=== PATIENT | female | born 1975 | race Caucasian/White ===

== ENCOUNTER 2019-09-19 19:45 | Emergency (ER) | payer MEDICARE, BC ==
[~2019-09-19] VITALS: Ht 162.6 cm; Wt 103.2 kg
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
--- OUTSIDE RECORDS SUMMARY | 2019-09-19 19:56 | XMS REPORT | Continuity of Care Document ---
Author Organization Unknown Address Unknown Phone Unavailable Allergies There is no data. Medications There is no data. Problems There is no data. Procedures There is no data. Results There is no data. Encounters ACCT No. Visit Date/Time Discharge Status Pt. Type Provider Facility Loc./Unit Complaint [id number] 08/25/2018 10:40:00 08/25/2018 23:59: 59 CLS Outpatient [facility] [id number] 09/19/2019 19:52:[address] Emergency ROBBI BULLOCK DO [facility] ER FS RIGHT ARM INJURY
[2019-09-19] MEDS ORDERED: diphenhydrAMINE 50 MG/ML INJ (BENADRYL) IM ONE (20:15)
[2019-09-19] MEDS ORDERED: PROCHLORPERAZINE 10 MG/2ML INJ (COMPAZINE) IV ONE (20:15)
[2019-09-19 20:24] LABS: BASOPHILS % (AUTO) 1 % (0-10); EOSINOPHILS % (AUTO) 1 % (0-10); HEMATOCRIT 40 % (35-52); HEMOGLOBIN 13.6 G/DL (11.5-16.0); LYMPHOCYTES % (AUTO) 37 % (12-44); MEAN CORPUSCULAR HEMOGLOBIN 31 PG (25-34); MEAN CORPUSCULAR HGB CONC 34 G/DL (32-36); MEAN CORPUSCULAR VOLUME 93 FL (80-99); MONOCYTES % (AUTO) 6 % (0-12); NEUTROPHILS % (AUTO) 55 % (42-75); PLATELET COUNT 247 10^3/uL (130-400); RED CELL DISTRIBUTION WIDTH 12.3 % (10.0-14.5); WHITE BLOOD COUNT 6.4 10^3/uL (4.3-11.0)
[2019-09-19 20:25] LABS: LYMPHOCYTES # (AUTO) 2.4 X 10^3 (1.0-4.0); MONOCYTES # (AUTO) 0.4 X 10^3 (0.0-1.0); NEUTROPHILS # (AUTO) 3.5 X 10^3 (1.8-7.8)
[2019-09-19] MEDS ORDERED: diphenhydrAMINE 50 MG/ML INJ (BENADRYL) IVP ONE (20:30)
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
[2019-09-19 20:41] LABS: CALCIUM 9.4 MG/DL (8.5-10.1); CARBON DIOXIDE 22 MMOL/L (21-32); CHLORIDE 100 MMOL/L (98-107); GLUCOSE 139 MG/DL (70-105); SODIUM 137 MMOL/L (135-145)
[2019-09-19 20:43] LABS: BUN/CREATININE RATIO 15; CREATININE SERUM 0.73 MG/DL (0.60-1.30); GFR ESTIMATED > 60
[2019-09-19] MEDS ORDERED: LIDOCAINE 1% INJ 20 ML 20 ML VIAL INJ ONE (20:45)
[2019-09-19] MEDS ORDERED: TETANUS,DIPTH,PERTUSS P/F (BOOSTRIX) 0.5 ML VIAL IM ONE (21:00)
[2019-09-19 21:32] VITALS: BP 119/73
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
== END 2019-09-19 21:32 | disposition home or self-care (01) ==
LOC: ER FS 19:52
DX: S61.511A Laceration without foreign body of right wrist, initial encounter (principal); S20.111A Abrasion of breast, right breast, initial encounter; S20.02XA Contusion of left breast, initial encounter; G43.909 Migraine, unspecified, not intractable, without status migrainosus; Z72.89 Other problems related to lifestyle; Y90.6 Blood alcohol level of 120-199 mg/100 ml; V86.95XA Unspecified occupant of 3- or 4- wheeled all-terrain vehicle (ATV) injured in nontraffic accident, initial encounter; Z23 Encounter for immunization
CPT/HCPCS: 12042; 36415; 70450; 71045; 73110; 80048; 85025; 90471; 96374; 96375; 99284; G0480; 80320; 90715

== ENCOUNTER 2020-07-10 05:07 | Emergency (ER) | payer BC, MEDICARE ==
[~2020-07-10] VITALS: Ht 167.7 cm; Wt 89.2 kg
[2020-07-10 05:20] VITALS: BP 132/73
--- NOTE | 2020-07-10 05:41 | ED Lower Extremity ---
General Chief Complaint: Lower Extremity Stated Complaint: RIGHT HIP PAIN Nursing Triage Note: Pt reports right upper thigh/hamstring pain x 2 months, pt states tonight pain was worse, pt has not taken anything for pain Nursing Sepsis Screen: No Definite Risk Source: patient Exam Limitations: no limitations History of Present Illness Date Seen by Provider: Jul 10, 2020 Time Seen by Provider: 05:20 Initial Comments Patient reports intermittent right hip pain for the past 2 years with continuous right thigh pain for the past 2 months. She recently helped her mother move and states that the pain is significantly worse this evening while in bed. The pain is deep and not tender to palpation. It is associated with weakness of hip flexion which has been ongoing for the past several months. Pain is at times burning and dull and this evening was intense. The pain is localized to the anterior hip but on occasion it migrates to the distal thigh or femur region. Patient has not been evaluated for this condition prior to the ED as she does not have health insurance or primary care provider. She has not taken any medications or therapies. She denies injury to this region. No other symptoms or complaints. Onset: other Severity: moderate Pain/Injury Location: right hip, right thigh Method of Injury: unknown Modifying Factors: Improves With Movement, Improves With Other Allergies and Home Medications Allergies Coded Allergies: No Known Drug Allergies (Unverified , 09/19/19) Patient Home Medication List Home Medication List Reviewed: Yes Review of Systems Constitutional: see HPI EENTM: see HPI Respiratory: see HPI Cardiovascular: see HPI Gastrointestinal: see HPI Genitourinary: see HPI Musculoskeletal: joint pain, muscle pain, muscle weakness Skin: no symptoms reported, see HPI Psychiatric/Neurological: See HPI All Other Systems Reviewed Negative Unless Noted: Yes Past Odfscpx-[id number]-[id number] Hx Past Med/Social Hx: Reviewed Nursing Past Med/Soc Hx Patient Social History Alcohol Use: Occasionally Uses Smoking Status: Never a Smoker 2nd Hand Smoke Exposure: No Recent Infectious Disease Expo: No Recent Hopitalizations: No Immunizations Up To Date Tetanus Booster (TDap): Less than 5yrs Seasonal Allergies Seasonal Allergies: No Past Medical History Surgeries: Yes Hysterectomy Respiratory: No Cardiac: No Neurological: Yes Headaches /Migraines Genitourinary: No Gastrointestinal: No Musculoskeletal: No Endocrine: No HEENT: No Cancer: No Psychosocial: Yes Depression Integumentary: No Blood Disorders: No Physical Exam Vital Signs Vital Signs - First Documented 07/10/20 05:20 Temp 36.6 Pulse 95 Resp 18 B/P (MAP) 132/73 (92) Pulse Ox 96 O2 Delivery Room Air Capillary Refill : Less Than 3 Seconds Height, Weight, BMI Height: '" Weight: lbs. oz. kg; 31.00 BMI Method: General Appearance: WD/WN HEENT: PERRL/EOMI Hips: right hip limited range of motion, right hip pain, right hip soft tissue tenderness Legs: right leg non-tender, right leg normal inspection, right leg normal range of motion Knees: right knee non-tender, right knee normal inspection, right knee normal range of motion Neurologic/Tendon: sensory deficit Neurologic/Psychiatric: alert, normal mood/affect, oriented x 3 Procedures/Interventions Suture Size: 4-0 Progress/Results/Core Measures Results/Orders My Orders Orders - RISHABH AVILES DO Hip 2-3 View Right (07/10/20 05:32) Vital Signs/I&O 07/10/20 05:20 Temp 36.6 Pulse 95 Resp 18 B/P (MAP) 132/73 (92) Pulse Ox 96 O2 Delivery Room Air Blood Pressure Mean: 92 Departure Communication (Admissions) Right hip x-ray: No obvious displaced fracture on preliminary ED review. Patient with long-term right pain with significant worsening at night. Suspect hip impingement syndrome versus labrum tear versus avascular necrosis versus arthritis from unknown cause. This will required work-up by a sports medicine physician, PCP or retail specialist. Will defer further evaluation to PCP. Patient instructed to establish with a PCP later today. She declines all medications recommended in the ED. Impression Primary Impression: Chronic right hip pain Disposition: HOME, SELF-CARE Condition: Stable Departure-Patient Inst. Decision time for Depature: 05:56 Referrals: NO,LOCAL PHYSICIAN (PCP/Family) Primary Care Physician Patient Instructions: Hip Pain Add. Discharge Instructions: Please establish with a primary care provider as soon as possible for evaluation of chronic hip pain. In the meantime take 600 mg of ibuprofen 3 times daily. All discharge instructions reviewed with patient and/or family. Voiced understanding. RISHABH AVILES DO Jul 10, 2020 05:41
--- NOTE | 2020-07-10 07:20 | Diagnostic Imaging Report ---
INDICATION: Pain COMPARISON: None available. TECHNIQUE: 2 radiographs of the right hip dated 07/10/2020 FINDINGS: No acute fracture or dislocation. No destructive osseous process. Moderate degenerative changes in the pubic symphysis. The right sacroiliac joint appears intact. IMPRESSION: No acute osseous abnormality with scattered degenerative changes, greatest involving the pubic symphysis. Dictated by: Dictated on workstation # [id number]
== END 2020-07-10 06:00 | disposition home or self-care (01) ==
LOC: EDUNIT# 05:07 → ER FS 05:11
DX: G89.29 Other chronic pain (principal); M25.551 Pain in right hip; M79.651 Pain in right thigh
CPT/HCPCS: 73502

== ENCOUNTER 2021-12-31 22:56 | Emergency (ER) | payer MEDICARE ==
[2021-12-31] MEDS ORDERED: PROMETHAZINE INJ 25 MG/ML (PHENERGAN) AMP IVP STA (23:07)
[2021-12-31] MEDS ORDERED: FAMOTIDINE 20 MG (PEPCID) TABLET PO STA (23:07)
--- NOTE | 2021-12-31 23:11 | ED Abdominal Pain ---
General Stated Complaint: ABD PAIN,VOMITTING Source of Information: Patient Exam Limitations: No Limitations History of Present Illness Date Seen by Provider: Dec 31, 2021 Time Seen by Provider: 23:00 Initial Comments 46yoF with prior gastric sleeve surgery coming in due to right upper quadrant pain. Started 2 and half hours prior to arrival, constant, sharp, nothing really seems to make it better or worse. She was watching a movie at home when it started. Never has really had pain like this before. Has associated nausea and nonbloody nonbilious vomiting. Had a normal bowel movement yesterday but none today. Denies any chest pain, shortness of breath, fever, weakness, numbness, dysuria, vaginal bleeding, vaginal discharge, or any other concerns. Has had a hysterectomy. Allergies and Home Medications Allergies Coded Allergies: No Known Drug Allergies (Unverified , 09/19/19) Patient Home Medication List Home Medication List Reviewed: Yes Hydrocodone Bit/Acetaminophen (HYDROcodone/APAP 5 MG/325 MG TAB) 1 Tab Tab, 1 TAB PO Q6H PRN for PAIN-SEVERE (8-10) Prescribed by: TASHA PEREZ on 01/01/22 0038 Review of Systems Review of Systems Constitutional: No fever EENTM: No Symptoms Reported Respiratory: No Symptoms Reported Cardiovascular: No Symptoms Reported Gastrointestinal: Abdominal Pain, Nausea, Vomiting Genitourinary: No Symptoms Reported Musculoskeletal: no symptoms reported Skin: no symptoms reported Psychiatric/Neurological: No Symptoms Reported Endocrine: No Symptoms Reported Hematologic/Lymphatic: No Symptoms Reported All Other Systems Reviewed Negative Unless Noted: Yes Past Icrrbhc-Wlgajg-Bupnmn Hx Patient Social History Tobacco Use?: No Substance use?: No Alcohol Use?: No Immunizations Up To Date Tetanus Booster (TDap): Less than 5yrs Seasonal Allergies Seasonal Allergies: No Past Medical History Surgery/Hospitalization HX: gastric sleeve, hysterectomy Surgeries: Yes Hysterectomy Respiratory: No Cardiac: No Neurological: Yes Headaches /Migraines Genitourinary: No Gastrointestinal: No Musculoskeletal: No Endocrine: No HEENT: No Cancer: No Psychosocial: Yes Depression Integumentary: No Blood Disorders: No Physical Exam Vital Signs Vital Signs - First Documented 12/31/21 22:59 Pulse 67 Resp 20 B/P (MAP) 164/90 (114) Pulse Ox 99 O2 Delivery Room Air Capillary Refill : Height/Weight/BMI Height: '" Weight: lbs. oz. kg; 31.00 BMI Method: General Appearance: WD/WN, mild distress HEENT: PERRL/EOMI, normal ENT inspection, pharynx normal Neck: non-tender, full range of motion, supple, normal inspection Respiratory: chest non-tender, lungs clear, normal breath sounds, no respiratory distress, no accessory muscle use Cardiovascular: regular rate, rhythm, no edema, no murmur Gastrointestinal: normal bowel sounds, soft; No distended, No guarding, No rebound; tenderness Extremities: normal range of motion, non-tender, normal inspection, no pedal edema, no calf tenderness, normal capillary refill Back: normal inspection, no CVA tenderness Neurologic/Psychiatric: no motor/sensory deficits, alert, normal mood/affect Skin: normal color, warm/dry Lymphatic: no adenopathy Procedures/Interventions IV : Location: Right Site: Upper arm IV Catheter Type: Peripheral IV IV Catheter Gauge: 18 Progress Ultrasound guidance used in real time during procedure with successful IV placement Suture Size: 4-0 Progress/Results/Core Measures Results/Orders Lab Results Laboratory Tests Test 12/31/21 23:00 12/31/21 23:20 Range/Units Urine Color YELLOW Urine Clarity SL CLOUDY Urine pH 8.0 5-9 Urine Specific [place] 1.015 L 1.016-1.022 Urine Protein NEGATIVE NEGATIVE Urine Glucose (UA) NEGATIVE NEGATIVE Urine Ketones 1+ H NEGATIVE Urine Nitrite NEGATIVE NEGATIVE Urine Bilirubin NEGATIVE NEGATIVE Urine Urobilinogen 0.2 < = 1.0 MG/DL Urine Leukocyte Esterase 2+ H NEGATIVE Urine RBC (Auto) NEGATIVE NEGATIVE Urine RBC NONE /HPF Urine WBC 5-10 H /HPF Urine Squamous Epithelial Cells 5-10 /HPF Urine Renal Epithelial Cells RARE /HPF Urine Crystals PRESENT H /LPF Urine Amorphous Sediment FEW JAIRO PHOSPHATE H /LPF Urine Bacteria TRACE /HPF Urine Casts PRESENT /LPF Urine Hyaline Casts RARE /LPF Urine Mucus SMALL H /LPF Urine Culture Indicated YES White Blood Count 7.9 4.3-11.0 10^3/uL Red Blood Count 4.63 3.80-5.11 10^6/uL Hemoglobin 14.6 11.5-16.0 g/dL Hematocrit 43 35-52 % Mean Corpuscular Volume 92 80-99 fL Mean Corpuscular Hemoglobin 32 25-34 pg Mean Corpuscular Hemoglobin Concent 34 32-36 g/dL Red Cell Distribution Width 11.9 10.0-14.5 % Platelet Count 236 130-400 10^3/uL Mean Platelet Volume 11.8 9.0-12.2 fL Immature Granulocyte % (Auto) 1 % Neutrophils (%) (Auto) 59 42-75 % Lymphocytes (%) (Auto) 33 12-44 % Monocytes (%) (Auto) 6 0-12 % Eosinophils (%) (Auto) 1 0-10 % Basophils (%) (Auto) 1 0-10 % Neutrophils # (Auto) 4.7 1.8-7.8 10^3/uL Lymphocytes # (Auto) 2.6 1.0-4.0 10^3/uL Monocytes # (Auto) 0.5 0.0-1.0 10^3/uL Eosinophils # (Auto) 0.1 0.0-0.3 10^3/uL Basophils # (Auto) 0.0 0.0-0.1 10^3/uL Immature Granulocyte # (Auto) 0.0 0.0-0.1 10^3/uL Sodium Level 138 135-145 MMOL/L Potassium Level 4.5 3.6-5.0 MMOL/L Chloride Level 101 98-107 MMOL/L Carbon Dioxide Level 22 21-32 MMOL/L Anion Gap 15 H 5-14 MMOL/L Blood Urea Nitrogen 18 7-18 MG/DL Creatinine 1.02 0.60-1.30 MG/DL Estimat Glomerular Filtration Rate 68 BUN/Creatinine Ratio 18 Glucose Level 127 H 70-105 MG/DL Calcium Level 9.9 8.5-10.1 MG/DL Corrected Calcium 9.6 8.5-10.1 MG/DL Magnesium Level 1.9 1.6-2.4 MG/DL Total Bilirubin 0.3 0.1-1.0 MG/DL Aspartate Amino Transf (AST/SGOT) 23 5-34 U/L Alanine Aminotransferase (ALT/SGPT) 25 0-55 U/L Alkaline Phosphatase 85 40-136 U/L Total Protein 7.5 6.4-8.2 GM/DL Albumin 4.4 3.2-4.5 GM/DL Lipase 31 8-78 U/L My Orders Orders - TASHA PEREZ MD Ct Abdomen/Pelvis W (12/31/21 23:07) Cbc With Automated Diff (12/31/21:) Comprehensive Metabolic Panel (12/31/21:) Lipase (12/31/21:) Magnesium (12/31/21:) Ua Culture If Indicated (12/31/21:) Ed Iv/Invasive Line Start (12/31/21:) Ns Iv 1000 Ml (Sodium Chloride 0.9%) (12/31/21 23:15) Promethazine Injection (Phenergan Injec (12/31/21:) Lidocaine 2% Viscous 15 Ml (Xylocaine Vi (12/31/21:) Famotidine Tablet (Pepcid Tablet) (12/31/21:) Antacid Suspension (Mylanta Suspension (12/31/21:) Ed Iv/Invasive Line Start (12/31/21:) Iohexol Injection (Omnipaque 350 Mg/Ml 1 (12/31/21:) Received Contrast (Hold Metformin- Contr (12/31/21:) Ns (Ivpb) (Sodium Chloride 0.9% Ivpb Bag (12/31/21 23:15) Morphine Injection (Morphine Injection (12/31/21:15) Urine Culture (12/31/21 23:00) Ceftriaxone 1 Gm Pre-Mix (Rocephin 1 Gm (01/01/22 00:39) Metronidazole Tablet (Flagyl Tablet) (01/01/22 00:45) Medications Given in ED Current Medications Medications Dose Ordered Sig/Parker Route Start Time Stop Time Status Last Admin Dose Admin Al Hydrox/Mg Hydrox/Simethicone 30 ml ONCE ONCE PO 12/31/21 23:15 12/31/21 23:16 DC 12/31/21 23:16 30 ML Iohexol 80 ml ONCE ONCE IV 12/31/21 23:15 12/31/21 23:16 DC 12/31/21 23:28 80 ML Lidocaine HCl 15 ml ONCE ONCE PO 12/31/21 23:15 12/31/21 23:16 DC 12/31/21 23:16 15 ML Metronidazole 500 mg ONCE ONCE PO 01/01/22 00:45 01/01/22 00:46 DC 01/01/22 00:45 500 MG Sodium Chloride 100 ml ONCE ONCE IV 12/31/21 23:15 12/31/21 23:16 DC 12/31/21 23:28 100 ML Vital Signs/I&O 12/31/21 01/01/22 22:59 00:48 Pulse 67 79 Resp 20 18 B/P (MAP) 164/90 (114) 125/74 Pulse Ox 99 97 O2 Delivery Room Air Room Air Progress Progress Note : Progress Note 46-year-old female with above history coming in due to right upper quadrant pain. ABCs were intact and vitals were stable on presentation. Physical exam with right upper quadrant tenderness but no signs of peritonitis. An IV was placed and basic labs were obtained. She was given Phenergan for nausea as well as a GI cocktail and IV fluids. Pain significantly improved after that. CT abdomen pelvis with questionable gallbladder wall thickening. I did a [id number] ultrasound and at that time I did not see any pericholecystic fluid. Additionally her pain was completely gone and vitals were reassuring at that time. Low suspicion for acute cholecystitis at this time. We will order an ultrasound as an outpatient to be done in less than 12 hours and have her follow-up with her surgeon in [place]. She was given a dose of ceftriaxone and flagyl in case this is an infectious etiology, it would cover her until her ultrasound is completed. I believe she stable for discharge with outpatient follow-up. She was sent home with strict return precautions. Diagnostic Imaging Diagonstic Imaging: CT (abd/pelvis) Comments Questionable mild gallbladder wall thickening, 3 mm nonobstructing right kidney stone, minimal diverticulosis, post gastric sleeve and hysterectomy Reviewed: Reviewed Night [facility] Departure Impression Primary Impression: RUQ abdominal pain Disposition: 01 HOME, SELF-CARE Condition: Stable Departure-Patient Inst. Decision time for Depature: 00:32 Referrals: MASON MORTON DO NO,LOCAL PHYSICIAN (PCP) Primary Care Physician Patient Instructions: Nausea and Vomiting, Adult ED Add. Discharge Instructions: It is possible the symptoms are coming from your gallbladder. It does not appear like it is acutely infected right now. We will get an ultrasound tomorrow in [place]. If there are concerns for infection at that time they will refer you to the ER there to discuss with the surgeon. Otherwise I want yo u to follow-up with Dr. Morton if symptoms persist. Scripts Hydrocodone Bit/Acetaminophen (HYDROcodone/APAP 5 MG/325 MG TAB) 1 Tab Tab 1 TAB PO Q6H PRN for PAIN-SEVERE (8-10) for 3 Days, #12 TAB 0 Refills Prov: TASHA PEREZ MD 01/01/22 Work/School Note: Work Release Form Date Seen in the Emergency Department: Jan 01, 2022 Return to Work: Jan 02, 2022 Restrictions: No Restrictions TASHA PEREZ MD Dec 31, 2021 23:11
[2021-12-31 23:15] LABS: BILIRUBIN,URINE NEGATIVE (NEGATIVE); CLARITY,URINE SL CLOUDY; COLOR,URINE YELLOW; GLUCOSE, URINE (UA) NEGATIVE (NEGATIVE); KETONES,URINE 1+ (NEGATIVE); LEUKOCYTE ESTERASE ,URINE 2+ (NEGATIVE); NITRITE,URINE NEGATIVE (NEGATIVE); PROTEIN,URINE NEGATIVE (NEGATIVE)
[2021-12-31] MEDS ORDERED: NS 100 ML (IVPB) BAG IV ONE (23:15)
[2021-12-31] MEDS ORDERED: morphine INJ 10 MG/ML 1ML (SYR OR VIAL) IVP PRN (23:15)
[2021-12-31] MEDS ORDERED: ANTACID SUSP 30 ML UDC (MYLANTA) PO ONE (23:15)
[2021-12-31] MEDS ORDERED: HOLD METFORMIN - RECEIVED CONTRAST 20 ML VIAL IV SCH (23:15)
[2021-12-31] MEDS ORDERED: NS IV 1000 ML 1,000 ML IV SCH (23:15)
[2021-12-31] MEDS ORDERED: IOHEXOL 350 MG/ML 100 ML (OMNIPAQUE 350) VIAL IV ONE (23:15)
[2021-12-31] MEDS ORDERED: LIDOCAINE 2% VISCOUS 15 ML UDC PO ONE (23:15)
[2021-12-31 23:26] LABS: BACTERIA,URINE TRACE /HPF; RENAL EPITHELIAL CELLS,URINE RARE /HPF
[2021-12-31 23:27] LABS: AMORPHOUS SEDIMENT,UR FEW AMOR PHOSPHATE /LPF; HYALINE CASTS, URINE RARE /LPF
[2021-12-31 23:36] LABS: BASOPHILS % (AUTO) 1 % (0-10); EOSINOPHILS # (AUTO) 0.1 10^3/uL (0.0-0.3); EOSINOPHILS % (AUTO) 1 % (0-10); HEMATOCRIT 43 % (35-52); HEMOGLOBIN 14.6 g/dL (11.5-16.0); LYMPHOCYTES # (AUTO) 2.6 10^3/uL (1.0-4.0); LYMPHOCYTES % (AUTO) 33 % (12-44); MEAN CORPUSCULAR HEMOGLOBIN 32 pg (25-34); MEAN CORPUSCULAR HGB CONC 34 g/dL (32-36); MEAN CORPUSCULAR VOLUME 92 fL (80-99); MEAN PLATELET VOLUME 11.8 fL (9.0-12.2); MONOCYTES # (AUTO) 0.5 10^3/uL (0.0-1.0); MONOCYTES % (AUTO) 6 % (0-12); NEUTROPHILS # (AUTO) 4.7 10^3/uL (1.8-7.8); NEUTROPHILS % (AUTO) 59 % (42-75); PLATELET COUNT 236 10^3/uL (130-400); WHITE BLOOD COUNT 7.9 10^3/uL (4.3-11.0)
[2021-12-31 23:57] LABS: BILIRUBIN,TOTAL 0.3 MG/DL (0.1-1.0); CALCIUM 9.9 MG/DL (8.5-10.1); CREATININE SERUM 1.02 MG/DL (0.60-1.30); MAGNESIUM 1.9 MG/DL (1.6-2.4); POTASSIUM 4.5 MMOL/L (3.6-5.0)
[2021-12-31 23:58] LABS: ALBUMIN 4.4 GM/DL (3.2-4.5); TOTAL PROTEIN 7.5 GM/DL (6.4-8.2)
[2022-01-01] MEDS ORDERED: ACHD5005 PO (00:38)
[2022-01-01] MEDS ORDERED: cefTRIAXone 1 GM PRE-MIX 50 ML IV STA (00:39)
[2022-01-01] MEDS ORDERED: metroNIDAZOLE 500 MG (FLAGYL) TAB PO ONE (00:45)
[2022-01-01 00:48] VITALS: BP 125/74
--- NOTE | 2022-01-01 08:08 | Diagnostic Imaging Report ---
PROCEDURE: CT abdomen and pelvis with contrast. TECHNIQUE: Multiple contiguous axial images were obtained through the abdomen and pelvis after administration of intravenous contrast. Auto Exposure Controls were utilized during the CT exam to meet ALARA standards for radiation dose reduction. All CT scans use one or more of the following dose optimizing techniques: automated exposure control, MA and/or KvP adjustment based on patient size and exam type or iterative reconstruction. DATE: December 31, 2021. COMPARISON: None. INDICATION: 46-year-old female, nausea and vomiting. Right-sided abdominal pain. FINDINGS: The visualized portions of the lung bases are clear. The heart is not enlarged. There is no pericardial effusion. The liver is unremarkable in size and contour. There is no identified liver lesion. The main, right, and left portal veins are patent. The gallbladder is unremarkable. There is no intrahepatic or extrahepatic bile duct dilation. The main pancreatic duct is not abnormally dilated. Unremarkable appearance of the pancreatic parenchyma. The spleen is normal in size. The adrenal glands are unremarkable. There is a 3 mm nonobstructing right renal stone. Urinary collecting systems are not distended. There is no identified ureteral stone. Urinary bladder is unremarkable. The intestinal tract is not distended. The appendix is unremarkable and best seen on axial image 154 and adjacent sequential images. The intestinal tract is not distended. There are sutures along the stomach. There is no free intraperitoneal air. There is no drainable fluid collection. There is no free fluid in the abdomen or pelvis. There are atherosclerotic calcifications. There is no identified abnormally enlarged lymph node in the abdomen or pelvis which meets CT size criteria for adenopathy. There are degenerative changes of the spine. IMPRESSION: CT ABDOMEN AND PELVIS. 1. No identified acute abnormality in the abdomen or pelvis. 2. 3 mm nonobstructing right renal stone without ureteral stone or hydronephrosis. Dictated by: Dictated on workstation # [id number]
[2022-01-02] MEDS ORDERED: PROP60CA PO (10:34)
[2022-01-02] MEDS ORDERED: BUPR100T7 PO (10:34)
== END 2022-01-01 00:52 | disposition home or self-care (01) ==
LOC: EDUNIT# 22:56 → ER FS 22:57
DX: R10.11 Right upper quadrant pain (principal); R11.2 Nausea with vomiting, unspecified; Z98.84 Bariatric surgery status; Z28.310 Unvaccinated for COVID-19
CPT/HCPCS: 36415; 74177; 80053; 81000; 83690; 83735; 85025; 87077; 87088; Q9967

== ENCOUNTER 2022-01-01 12:52 | Emergency (ER) | payer MEDICARE ==
[~2022-01-01] VITALS: Ht 165 cm; Wt 78.0 kg
[~2022-01-01 12:52] MED LIST changes: -BUPR100T7 PO; -PROP60CA PO
--- NOTE | 2022-01-01 13:06 | ED Abdominal Pain ---
General Chief Complaint: Abdominal/GI Problems Stated Complaint: ABD PAIN Source of Information: Patient Exam Limitations: No Limitations History of Present Illness Date Seen by Provider: Jan 01, 2022 Time Seen by Provider: 13:05 Initial Comments This is a 46 yo female who was referred to ED from ultrasound today. States she was evaluated and treated at ER last night for RUQ abdominal pain. Had CT scan of abdomen/pelvis which showed no acute findings and had outpatient follow up today for GB ultrasound. Patient has no fever, chills, nausea, vomiting, or abdominal pain at this time. States she was sent over because her outpatient order said to send patient to ER if abnormal findings evident on US today. Allergies and Home Medications Allergies Coded Allergies: No Known Drug Allergies (Unverified , 09/19/19) Patient Home Medication List Home Medication List Reviewed: Yes Hydrocodone Bit/Acetaminophen (HYDROcodone/APAP 5 MG/325 MG TAB) 1 Tab Tab, 1 TAB PO Q6H PRN for PAIN-SEVERE (8-10) Prescribed by: TASHA PEREZ on 01/01/22 0038 Review of Systems Review of Systems Constitutional: see HPI Past Gppmwrv-Jkovde-Ivwnun Hx Immunizations Up To Date Tetanus Booster (TDap): Less than 5yrs Seasonal Allergies Seasonal Allergies: No Past Medical History Surgery/Hospitalization HX: gastric sleeve, hysterectomy Surgeries: Yes Hysterectomy Respiratory: No Cardiac: No Neurological: Yes Headaches /Migraines Genitourinary: No Gastrointestinal: No Musculoskeletal: No Endocrine: No HEENT: No Cancer: No Psychosocial: Yes Depression Integumentary: No Blood Disorders: No Physical Exam Vital Signs Vital Signs - First Documented 01/01/22 13:10 Temp 36.8 Pulse 68 Resp 16 B/P (MAP) 127/85 (99) Pulse Ox 98 Capillary Refill : Height/Weight/BMI Height: '" Weight: lbs. oz. kg; 31.00 BMI Method: General Appearance: WD/WN, no apparent distress HEENT: PERRL/EOMI, normal ENT inspection Neck: full range of motion, normal inspection Respiratory: no respiratory distress, no accessory muscle use Gastrointestinal: normal bowel sounds, non tender, soft Extremities: normal range of motion, normal inspection Back: normal inspection Neurologic/Psychiatric: no motor/sensory deficits, alert, normal mood/affect, oriented x 3 Skin: normal color, warm/dry Procedures/Interventions Suture Size: 4-0 Progress/Results/Core Measures Results/Orders Lab Results Laboratory Tests Test 01/01/22 13:34 Range/Units White Blood Count 5.7 4.3-11.0 10^3/uL Red Blood Count 4.81 3.80-5.11 10^6/uL Hemoglobin 15.1 11.5-16.0 g/dL Hematocrit 48 35-52 % Mean Corpuscular Volume 99 80-99 fL Mean Corpuscular Hemoglobin 31 25-34 pg Mean Corpuscular Hemoglobin Concent 32 32-36 g/dL Red Cell Distribution Width 12.0 10.0-14.5 % Platelet Count 112 L 130-400 10^3/uL Mean Platelet Volume 11.6 9.0-12.2 fL Immature Granulocyte % (Auto) 0 % Neutrophils (%) (Auto) 43 42-75 % Lymphocytes (%) (Auto) 49 H 12-44 % Monocytes (%) (Auto) 6 0-12 % Eosinophils (%) (Auto) 1 0-10 % Basophils (%) (Auto) 1 0-10 % Neutrophils # (Auto) 2.5 1.8-7.8 10^3/uL Lymphocytes # (Auto) 2.8 1.0-4.0 10^3/uL Monocytes # (Auto) 0.4 0.0-1.0 10^3/uL Eosinophils # (Auto) 0.0 0.0-0.3 10^3/uL Basophils # (Auto) 0.0 0.0-0.1 10^3/uL Immature Granulocyte # (Auto) 0.0 0.0-0.1 10^3/uL Percent Immature Platelet Fraction 9.3 H 0.0-7.6 % Sodium Level 141 135-145 MMOL/L Potassium Level 4.6 3.6-5.0 MMOL/L Chloride Level 111 #H 98-107 MMOL/L Carbon Dioxide Level 25 21-32 MMOL/L Anion Gap 5 5-14 MMOL/L Blood Urea Nitrogen 11 7-18 MG/DL Creatinine 0.77 0.60-1.30 MG/DL Estimat Glomerular Filtration Rate 95 BUN/Creatinine Ratio 14 Glucose Level 76 70-105 MG/DL Calcium Level 8.9 8.5-10.1 MG/DL Corrected Calcium 9.0 8.5-10.1 MG/DL Total Bilirubin 0.3 0.1-1.0 MG/DL Aspartate Amino Transf (AST/SGOT) 24 5-34 U/L Alanine Aminotransferase (ALT/SGPT) 24 0-55 U/L Alkaline Phosphatase 62 40-136 U/L Total Protein 6.6 6.4-8.2 GM/DL Albumin 3.9 3.2-4.5 GM/DL My Orders Orders - DELMA LIND Larry [employer] Cbc With Automated Diff (01/01/22 13:04) Comprehensive Metabolic Panel (01/01/22 13:04) Vital Signs/I&O 01/01/22 01/01/22 13:10 15:14 Temp 36.8 Pulse 68 74 Resp 16 18 B/P (MAP) 127/85 (99) 111/83 Pulse Ox 98 97 Progress Progress Note : Progress Note Patient examined, no acute distress. US tech reported findings of cholecystitis and pericholecystic fluid present so patient was referred to ED. Consult placed with Dr. Morton general surgeon. Still pending final radiology read. Final US read shows no evidence GB obstruction, stone, pericholecystic fluid, or cholecystis. Discussed imaging with Radiologist Dr. Nunn, patient has decompressed GB, significant sludge limiting exam but no evidence of cholecystitis. Updated Dr. Morton on final radiology report. He personally reviewed imaging and has concerns for potential obstruction. He would like to see patient in office a fter ED discharge today. Discharge POC reviewed with patient and she is agreeable with plan. Diagnostic Imaging Diagonstic Imaging: Ultrasound Comments [facility], [place] NAME: SHREYAS MARTIN [facility] REC#: [id number] PT STATUS: REG CLI : 1975 PHYSICIAN: TASHA PEREZ MD ADMIT DATE: 01/01/22/RAD Signed Date of Exam:01/01/22 US GALLBLADDER [id number] PROCEDURE: US Gallbladder. TECHNIQUE: Multiple Real-time grayscale images were obtained over the right upper quadrant in various projections. INDICATION: Right upper quadrant pain with nausea and vomiting. FINDINGS: The liver is normal in size at 17 cm. The portal vein is patent and shows normal direction of flow. The gallbladder appears to be contracted. No definite gallstones are seen but there does appear to be internal debris, likely sludge. In addition, the gallbladder wall appears thickened at 3 mm. No pericholecystic fluid or biliary ductal dilatation is seen. The pancreas is obscured by bowel gas. The visualized aorta is nonaneurysmal. The IVC is patent. The right kidney is unremarkable. There is no ascites. IMPRESSION: Thick-walled gallbladder with internal sludge. If there is concern for cholecystitis, a Nuclear Medicine HIDA scan may be useful for further evaluation. Dictated by: Dictated on workstation # [id number] Dict: 01/01/22 1303 Trans: 01/01/22 1538 [id number] Interpreted by: RAZA NUNN MD Electronically signed by: RAZA NUNN MD 01/01/22 1538 Reviewed: Reviewed by Me Departure Impression Primary Impression: Gallbladder sludge Disposition: 01 HOME, SELF-CARE Condition: Improved Departure-Patient Inst. Decision time for Depature: 15:01 Referrals: [facility] (PCP/Family) Primary Care Physician Patient Instructions: Gallbladder Diet Add. Discharge Instructions: Plan: 1. 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 2. After discharge please present to Dr. Morton's office, location is listed below. 3. Return to the ER if you have any new, concerning, worsening symptoms. Clem Morton, DO [email or web address] [address] [place] [address] All discharge instructions reviewed with patient and/or family. Voiced understanding. DELMA LIND [employer] CARPENTER Jan 01, 2022 13:06
[2022-01-01 13:42] LABS: BASOPHILS % (AUTO) 1 % (0-10)
[2022-01-01 13:44] LABS: EOSINOPHILS % (AUTO) 1 % (0-10); HEMATOCRIT 48 % (35-52); HEMOGLOBIN 15.1 g/dL (11.5-16.0); LYMPHOCYTES # (AUTO) 2.8 10^3/uL (1.0-4.0); LYMPHOCYTES % (AUTO) 49 % (12-44); MEAN CORPUSCULAR HEMOGLOBIN 31 pg (25-34); MEAN CORPUSCULAR HGB CONC 32 g/dL (32-36); MEAN CORPUSCULAR VOLUME 99 fL (80-99); MEAN PLATELET VOLUME 11.6 fL (9.0-12.2); MONOCYTES # (AUTO) 0.4 10^3/uL (0.0-1.0); MONOCYTES % (AUTO) 6 % (0-12); NEUTROPHILS # (AUTO) 2.5 10^3/uL (1.8-7.8); NEUTROPHILS % (AUTO) 43 % (42-75); PLATELET COUNT 112 10^3/uL (130-400); WHITE BLOOD COUNT 5.7 10^3/uL (4.3-11.0)
[2022-01-01 14:03] LABS: ALBUMIN 3.9 GM/DL (3.2-4.5); POTASSIUM 4.6 MMOL/L (3.6-5.0)
[2022-01-01 14:04] LABS: CALCIUM 8.9 MG/DL (8.5-10.1)
[2022-01-01 14:05] LABS: TOTAL PROTEIN 6.6 GM/DL (6.4-8.2)
[2022-01-01 14:07] LABS: BILIRUBIN,TOTAL 0.3 MG/DL (0.1-1.0)
[2022-01-01 14:09] LABS: CREATININE SERUM 0.77 MG/DL (0.60-1.30)
--- NOTE | 2022-01-01 14:18 | Consultation - Surgery ---
BENITA SAXENA 01/01/22 1418: History of Present Illness History of Present Illness Patient Consulted On(michelle/time) 01/01/22 14:13 Time Seen by Provider: 13:30 History of Present Illness Pt is a 46yo F with pmh of Ankylosis spondylitis, migraines, and HTN who presented to the ED after experiencing abdominal pain last night Dec 31. She reports a burning sensation in her mid back and then a sharp pain in her RUQ t hat was rated 6/10. The pain radiates to her back. Pt reported N/V last night with the onset of pain but none today. She claims she was sweaty but not running a fever. Current pain is 2/10, pt says she feels better than last night. Similar pain has happened approximately 4 times in the past year, none this painful. These attacks do not seem to be related to food according to the patient. Pt has not eaten since the pain started. Pt denies any other complaints such as chest pain, shortness of breath, changes in hearing/vision, fever, and redness to her urine or stool. Allergies and Home Medications Allergies Coded Allergies: No Known Drug Allergies (Unverified , 01/02/22) Patient Home Medication List Home Medication List Reviewed: Yes Bupropion HCl (Wellbutrin Sr) Unknown Strength Tablet.er, Unknown Dose PO, (Reported) Entered as Reported by: RAVINDRA CHILDERS on 01/02/22 1034 Hydrocodone Bit/Acetaminophen (HYDROcodone/APAP 5 MG/325 MG TAB) 1 Tab Tab, 1 TAB PO Q6H PRN for PAIN-SEVERE (8-10) Prescribed by: TASHA PEREZ on 01/01/22 0038 Propranolol HCl (Propranolol HCl ER) Unknown Strength Cap.sa.24h, Unknown Dose PO DAILY, (Reported) Entered as Reported by: RAVINDRA CHILDERS on 01/02/22 1034 Past Vxutyrt-Mqmryp-Hlxhet Hx Patient Social History Smoking Status: Never a Smoker (occasional) 2nd Hand Smoke Exposure: No Recent Hopitalizations: No Alcohol Use?: Yes Immunizations Up To Date Tetanus Booster (TDap): Less than 5yrs Seasonal Allergies Seasonal Allergies: No Surgeries History of Surgeries: Yes Surgeries: Abdominal (gastric sleeve in 2019), Hysterectomy (2000, due to prolapse) Respiratory History of Respiratory Disorde: No Cardiovascular History of Cardiac Disorders: Yes Cardiac Disorders: Hypertension Neurological History of Neurological Disord: Yes Neurological Disorders: Headaches /Migraines Genitourinary History of Genitourinary Disor: No Gastrointestinal History of Gastrointestinal Di: Yes Gastrointestinal Disorders: Irritable Bowel (pt claims to have IBS, supposed to take fiber, does not) Musculoskeletal History of Musculoskeletal Dis: Yes Musculoskeletal Disorders: Arthritis (pt diagnosed with ankylosing spondylitis 2 years ago, 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) Endocrine History of Endocrine Disorders: No HEENT History of HEENT Disorders: No Cancer History of Cancer: No Psychosocial History of Psychiatric Problem: Yes Behavioral Health Disorders: Depression Integumentary History of Skin or Integumenta: No Blood Transfusions History of Blood Disorders: No Family Medical History Significant Family History: Heart Disease (NH in father in early 40s), Cancer (bladder cancer in father), Diabetes (father), Other Conditions/Hx (TIAs in mother) Review of Systems-General Constitutional: No chills, No fever EENTM: No hearing loss, No blurred vision, No vision loss Respiratory: No cough, No short of breath Cardiovascular: No chest pain, No palpitations, No syncope Gastrointestinal: abdominal pain (RUQ); No hematemesis; nausea, vomiting Genitourinary: No dysuria, No hematuria Skin: No change in color, No change in hair/nails, No hx of skin cancer Psychiatric/Neurological: Denies Headache, Denies Seizure Physical Exam-General Problems Physical Exam Vital Signs Vital Signs - First Documented 01/01/22 13:10 Temp 36.8 Pulse 68 Resp 16 B/P (MAP) 127/85 (99) Pulse Ox 98 Capillary Refill : Less Than 3 Seconds General Appearance: WD/WN, no apparent distress Eyes: Bilateral Eye PERRL, Bilateral Eye EOMI HEENT: PERRL/EOMI; No scleral icterus (R), No scleral icterus (L) Neck: non-tender, supple Respiratory: chest non-tender, lungs clear, normal breath sounds, no accessory muscle use Cardiovascular: regular rate, rhythm, no murmur Peripheral Pulses: 2+ Radial Pulses (R), 2+ Radial Pulses (L) Gastrointestinal: normal bowel sounds, soft, tenderness (RUQ, negative flores's sign) Rectal: deferred Extremities: non-tender, no pedal edema, no calf tenderness, normal capillary refill Neurologic/Psychiatric: alert, normal mood/affect, oriented x 3; No facial droop Skin: normal color, warm/dry Lymphatic: no adenopathy (cervical) Data Review Labs Laboratory Tests 01/01/22 13:34: White Blood Count 5.7, Red Blood Count 4.81, Hemoglobin 15.1, Hematocrit 48, Mean Corpuscular Volume 99, Mean Corpuscular Hemoglobin 31, Mean Corpuscular Hemoglobin Concent 32, Red Cell Distribution Width 12.0, Platelet Count 112L, Mean Platelet Volume 11.6, Immature Granulocyte % (Auto) 0, Neutrophils (%) (Auto) 43, Lymphocytes (%) (Auto) 49H, Monocytes (%) (Auto) 6, Eosinophils (%) (Auto) 1, Basophils (%) (Auto) 1, Neutrophils # (Auto) 2.5, Lymphocytes # (Auto) 2.8, Monocytes # (Auto) 0.4, Eosinophils # (Auto) 0.0, Basophils # (Auto) 0.0, Immature Granulocyte # (Auto) 0.0, Percent Immature Platelet Fraction 9.3H, Sodium Level 141, Potassium Level 4.6, Chloride Level 111#H, Carbon Dioxide Level 25, Anion Gap 5, Blood Urea Nitrogen 11, Creatinine 0.77, Estimat Glomerular Filtration Rate 95, BUN/Creatinine Ratio 14, Glucose Level 76, Calcium Level 8.9, Corrected Calcium 9.0, Total Bilirubin 0.3, Aspartate Amino Transf (AST/SGOT) 24, Alanine Aminotransferase (ALT/SGPT) 24, Alkaline Phosphatase 62, Total Protein 6.6, Albumin 3.9 Radiology NAME: SHREYAS MARTIN [facility] REC#: [id number] PT STATUS: REG CLI : 1975 PHYSICIAN: TASHA PEREZ MD ADMIT DATE: 01/01/22/RAD Draft Date of Exam:01/01/22 US GALLBLADDER [id number] PROCEDURE: US Gallbladder. TECHNIQUE: Multiple Real-time grayscale images were obtained over the right upper quadrant in various projections. INDICATION: Right upper quadrant pain with nausea and vomiting. FINDINGS: The liver is normal in size at 17 cm. The portal vein is patent and shows normal direction of flow. The gallbladder appears to be contracted. No definite gallstones are seen but there does appear to be internal debris, likely sludge. In addition, the gallbladder wall appears thickened at 3 mm. No pericholecystic fluid or biliary ductal dilatation is seen. The pancreas is obscured by bowel gas. The visualized aorta is nonaneurysmal. The IVC is patent. The right kidney is unremarkable. There is no ascites. IMPRESSION: Thick-walled gallbladder with internal sludge. If there is concern for cholecystitis, a Nuclear Medicine HIDA scan may be useful for further evaluation. Dictated on workstation # [id number] Dict: 01/01/22 1303 Trans: 01/01/22 1322 [id number] Interpreted by: RAZA GANT MD Electronically signed by: Assessment/Plan Assessment/Plan Assessment/Plan Possible acute cholecystitis Gallbladder US revealed a thickened gallbladder wall with sludge, no pericholecystic fluid or stones CT of abdomen and pelvis negative Pain has recurred multiple times this year Renal stone CT Ab Pelv revealed a 3mm stone in the right kidney with no dilation or hydronephrosis Plan: HIDA scan may be necessary to rule in/out cholecystitis. Lack of fever and abdominal pain today without stones or pericholecystic fluid is questionable for acute cholecystitis. Pain is currently under control. If HIDA reveals cholecystitis then cholecystectomy would be warranted, if not pt can likely follow up as an outpatient to discuss elective cholecystectomy for what seems to be a relapsing and remitting obstructive pattern in the gallbladder. MASON SOTO DO 01/04/22 1231: Allergies and Home Medications Allergies Coded Allergies: No Known Drug Allergies (Unverified , 01/02/22) Patient Home Medication List Bupropion HCl (Wellbutrin Sr) Unknown Strength Tablet.er, Unknown Dose PO, (Reported) Entered as Reported by: RAVINDRA CHILDERS on 01/02/22 1034 Hydrocodone Bit/Acetaminophen (HYDROcodone/APAP 5 MG/325 MG TAB) 1 Tab Tab, 1 TAB PO Q6H PRN for PAIN-SEVERE (8-10) Prescribed by: TASHA PEREZ on 01/01/22 0038 Propranolol HCl (Propranolol HCl ER) Unknown Strength Cap.sa.24h, Unknown Dose PO DAILY, (Reported) Entered as Reported by: RAVINDRA CHILDERS on 01/02/22 1034 Supervisory-Addendum Brief Verification & Attestation Participated in pt care: other (pt sent to my office to be seen) Personally performed: other Care discussed with: Medical Student Procedures: n/a pt sent to my office to be seen BENITA SAXENA Jan 01, 2022 14:18 MASON SOTO DO Jan 04, 2022 12:31
[2022-01-01 15:14] VITALS: BP 111/83
[2022-01-02] MEDS ORDERED: PROP60CA PO (10:34)
[2022-01-02] MEDS ORDERED: BUPR100T7 PO (10:34)
== END 2022-01-01 15:14 | disposition home or self-care (01) ==
LOC: EDUNIT# 12:52 → ER 12:55
DX: K82.8 Other specified diseases of gallbladder (principal); Z98.84 Bariatric surgery status
CPT/HCPCS: 36415; 80053; 85025; 99281

== ENCOUNTER → 2022-01-01 | Outpatient (CLI) | payer MEDICARE ==
[~2022-01-01] MED LIST: ACHD5005 PO; BUPR100T7 PO; PROP60CA PO
--- NOTE | 2022-01-01 13:22 | Diagnostic Imaging Report ---
PROCEDURE: US Gallbladder. TECHNIQUE: Multiple Real-time grayscale images were obtained over the right upper quadrant in various projections. INDICATION: Right upper quadrant pain with nausea and vomiting. FINDINGS: The liver is normal in size at 17 cm. The portal vein is patent and shows normal direction of flow. The gallbladder appears to be contracted. No definite gallstones are seen but there does appear to be internal debris, likely sludge. In addition, the gallbladder wall appears thickened at 3 mm. No pericholecystic fluid or biliary ductal dilatation is seen. The pancreas is obscured by bowel gas. The visualized aorta is nonaneurysmal. The IVC is patent. The right kidney is unremarkable. There is no ascites. IMPRESSION: Thick-walled gallbladder with internal sludge. If there is concern for cholecystitis, a Nuclear Medicine HIDA scan may be useful for further evaluation. Dictated by: Dictated on workstation # [id number]
== END ==
LOC: RAD 11:30
PROVIDERS: ATTEND Emergency Medicine
DX: K82.8 Other specified diseases of gallbladder (principal)
CPT/HCPCS: 76705

== ENCOUNTER 2022-01-02 09:22 | Day surgery (SDC) | payer MEDICARE ==
[2022-01-02] VITALS (12 sets, daily range): BP systolic 104–133; BP diastolic 65–88
[~2022-01-02] VITALS: Ht 165.1 cm; Wt 80.9 kg
[2022-01-02] MEDS ORDERED: LIDOCAINE PF 2% 5 ML (XYLOCAINE) VIAL ONE (09:47)
[2022-01-02] MEDS ORDERED: proPOfol 200 MG/20 ML (DIPRIVAN) VIAL IV ONE (09:47)
[2022-01-02] MEDS ORDERED: ONDANSETRON 4 MG/2 ML (SDV) Z0FRAN ONE ×2 (09:47→11:36)
[2022-01-02] MEDS ORDERED: ROCURONIUM 10 MG/ML 5 ML SYRINGE IV ONE (09:47)
[2022-01-02] MEDS ORDERED: fentaNYL INJ 100 MCG/2 ML AMP ONE (09:47)
[2022-01-02] MEDS ORDERED: MIDAZOLAM 2 MG/2 ML (VERSED) VIAL ONE (09:47)
[2022-01-02] MEDS ORDERED: BUP/EPI 0.5% 1:200,000 (MARCAINE) 10ML VIAL IJ ONE (09:52)
[2022-01-02] MEDS ORDERED: ceFAZolin INJECTION 2,000 MG ONE (10:11)
[2022-01-02] MEDS ORDERED: NS (IVPB) 50 ML ONE (10:12)
[2022-01-02] MEDS: LACTATED RINGERS 1,000 ML IV PRN ×2 (10:20→11:43)
[2022-01-02] MEDS ORDERED: BUPR100T7 PO (10:34)
[2022-01-02] MEDS ORDERED: PROP60CA PO (10:34)
[2022-01-02] MEDS ORDERED: GLYCOPYRROLATE 0.2 MG/ML (ROBINUL) 2 ML VIAL ONE (11:03)
[2022-01-02] MEDS ORDERED: NEOSTIGMINE 3 MG/3 ML VIAL ONE (11:03)
--- NOTE | 2022-01-02 11:11 | Progress Note-Post Operative ---
Post-Operative Progess Note Surgeon (s)/Wood Miller (s) Surgeon MASON SOTO DO Wood Miller: Timoteo Pre-Operative Diagnosis Cholecystitis/cholelithiasis Post-Operative Diagnosis Same possibly acute with adhesions Procedure & Operative Findings Date of Procedure 01/02/22 Procedure Performed/Findings PROCEDURE: Laparoscopic cholecystectomy with intraoperative cholangiogram. COMPLICATIONS: None. PROCEDURE: The patient was taken to the operating suite and was prepped and draped in sterile fashion. A surgical pause was performed. Just superior to the umbilicus, a 12 mm incision was made. Dissection was taken down to the fascia, which was then scored and grasped with a Turner and the abdomen was then entered. An 0- Vicryl suture was placed in a jidwym-rn-vevye fashion and a Eng trocar was placed and secured. Pneumoperitoneum was achieved. A 5mm trochar place in the subxyphoid and 2 in the right upper quadrant. Noted adhesions which usually indicate previous gallbladder attacks. The gallbladder was contracted and injected, almost looked acute. The gallbladder was then grasped at the fundus and taken in the superior direction. Then grasped at Jeter's pouch and pulled in the infero-lateral dir- ection. The cystic duct and cystic artery were then dissected out. Clip was placed on the distal portion of the cystic duct which was then partially transected. An arrow catheter was inserted into the duct. The cholangiogram was then performed. No filling defects and contrast made its way into the duodenum. Catheter removed. Clips were placed on proximal portion of the cystic duct and then the duct was then saravia- sected. Clips were placed along the proximal and distal portion of the cystic artery which was then transected. Hook cautery was used to dissect the gallbladder from the gallbladder fossa achieving hemostasis. The gallbladder was placed in an Endobag and removed through the 12 mm trocar site. The abdomen was then reinspected. Copious amounts of irrigation were used to irrigate the abdomen and there were no signs of active bleeding. Hemostasis had been achieved. The 12 mm fascial defect was then closed with 0 Vicryl suture that had been placed in a sewgis-lr-ssssb fashion. The abdomen was then desufflated, the trocars were removed. The abdomen was then washed and dried. The skin was then closed using 4-0 Monocryl in a subcuticular fashion. The abdomen was washed and dried and Skin Affix was place over incisions. Patient tolerated the procedure well without any complications and was taken to the recovery room in stable condition. Dr. Mahmood assisted on this case helping to make incisions, close incisions, identify anatomy and hold anatomy out of the way. Anesthesia Type GET Estimated Blood Loss Estimated blood loss (mL): scant Specimens/Packing Specimens Removed GB and contents MASON SOTO DO Jan 02, 2022 11:11
--- NOTE | 2022-01-02 11:13 | Discharge Inst-Surgical ---
Discharge Inst-Surgical Depart Medication/Instructions New, Converted or Re-Newed RX: Other (Use meds given by ER) Patient Instructions Follow up Appt: Make appointment for 1 week. [phone] Instructions: No lifting greater than 20 pounds. No strenuous activity. May shower in 24 hours, no tub bath or soaking. Use incentive spirometer at home as directed. No Smoking Skin/Wound Care: May remove bandages in am. You need to leave the Dermabond on incision it will fall off on it's own. Symptoms to Report: Appetite Changes, Extremity Discoloration, Numbness/Tingling, Swelling Increased, Bleeding Excessive, Eyesight Changes, Pain Increased, Urine Color Change, Constipation(Persistent), Fever over 101 degree F, Pain/Pressure in chest, Urinating Difficulty, Cough Up/Vomit Blood, Heart Beat Irreg/Pounding, Pain/Pressure in jaw, Cramps in feet or legs, Lightheadedness, Pain/Pressure in shoulder, Diarrhea(Persistent), Memory Changes Suddenly, Questions/Concerns, Weight gain consecutive days, Dizziness/Fainting, Nausea/Vomiting, Shortness of Breath, Weight gain over 2 pounds If questions or concerns contact your physician Or seek help at emergency department. Activity Activity as Tolerated: Yes Activity Instructions: Avoid Stress to Incision Driving Instructions: No Driving/Refer to Diet Discharge Diet: Avoid Fatty Foods, Low Fat/Low Cholesterol Diet After 24 Hours: Clear Liquid if Nauseous If Any Problems/Questions/Issu: Contact Your Physician, Go to Emergency Room Skin/Wound Care Infection Signs and Symptoms: Increased Redness, Foul Odor of Wound, Increased Drainage, Skin Itchy or Has a Rash, Increased Swelling, Temperature Above 101 F Wound Care Comment: heating pad to shoulder or neck for pain tonight Bathing Instructions: Shower Stitches/Jaylan/Dermabond Dis: Dermabond Ice Pack: Ice On and Off Site MASON SOTO DO Jan 02, 2022 11:13
[2022-01-02] MEDS ORDERED: SEVOFLURANE (ULTANE) 15 ML INHAL SOLN ONE (11:34)
[2022-01-02] MEDS ORDERED: HYDROmorphone 2 MG/ML VIAL (DILAUDID) IV ONE (11:45)
[2022-01-02] MEDS ORDERED: morphine INJ 10 MG/ML 1ML (SYR OR VIAL) IVP ONE (11:45)
[2022-01-02] MEDS ORDERED: ONDANSETRON 4 MG/2 ML (SDV) Z0FRAN IVP PRN (11:45)
--- NOTE | 2022-01-02 12:20 | Anesthesia-General Post-Op ---
General Patient Condition Mental Status/LOC: Same as Preop Cardiovascular: Satisfactory Nausea/Vomiting: Absent Respiratory: Satisfactory Pain: Controlled Complications: Absent Post Op Complications Complications None Follow Up Care/Instructions Patient Instructions None needed. Anesthesia/Patient Condition Patient Condition Patient is doing well in PACU with no complaints, stable vital signs, no apparent adverse anesthesia problems. No complications reported per nursing. SUGAR MAX DO Jan 02, 2022 12:20
--- NOTE | 2022-01-02 17:22 | Diagnostic Imaging Report ---
INDICATION: Abdominal pain. EXAMINATION: Surgical cholangiogram. IMPRESSION: 8 seconds of fluoroscopy and 37 intraoperative digital images were used in surgery by Dr. Morton during an intraoperative surgical cholangiogram. The captured images show opacification of the biliary tree with no filling defect and with contrast passing into the duodenum. Dictated by: Dictated on workstation # [id number]
== END 2022-01-02 13:35 | disposition home or self-care (01) ==
LOC: SDC 09:22
PROVIDERS: ATTEND Surgery
DX: K80.10 Calculus of gallbladder with chronic cholecystitis without obstruction (principal); K80.00 Calculus of gallbladder with acute cholecystitis without obstruction; Z28.310 Unvaccinated for COVID-19
CPT/HCPCS: 76000; 87081

== ENCOUNTER → 2022-03-07 | Outpatient (CLI) | payer MEDICARE ==
[~2022-03-07] MED LIST changes: +BUPR100T7 PO; +PROP60CA PO
--- NOTE | 2022-03-07 17:32 | Diagnostic Imaging Report ---
CLINICAL INDICATION: Patient with chronic back pain. EXAM: X-ray of the lumbar spine, 3 views. COMPARISON: None. FINDINGS: A subtle right curvature of the thoracolumbar spine. There is no acute lumbar spine fracture or dislocation. There is moderate loss of disk space height at the L3-L4 and L5-S1 levels. There are small spurs involving lumbar spine. There is lower lumbar spine facet arthropathy. Sacroiliac joints are unremarkable. Phleboliths are seen in the pelvis. IMPRESSION: There is degenerative disease of the lumbar spine with no acute fracture or dislocation. Dictated by: Dictated on workstation # [id number]
== END ==
LOC: RAD FS 15:27
PROVIDERS: ATTEND Nurse Practitioner
DX: M47.816 Spondylosis without myelopathy or radiculopathy, lumbar region (principal)
CPT/HCPCS: 72100

== ENCOUNTER 2022-12-02 10:40 | Emergency (ER) | payer MEDICARE ==
[~2022-12-02] VITALS: Ht 165.1 cm; Wt 76.0 kg
[2022-12-02 10:45] VITALS: BP 151/96
--- NOTE | 2022-12-02 10:53 | ED Abdominal Pain ---
General Stated Complaint: NAUSEA; ABD PAIN; BOWEL CONSTIPATION History of Present Illness Date Seen by Provider: Dec 02, 2022 Time Seen by Provider: 10:48 Initial Comments 47-year-old female presents with some abdominal discomfort in the left lower quadrant. She reports that she has been constipated and has had a bowel movement for 10 days. She has taken 3 doses of MiraLAX over the last days. She was recently diagnosed with a urinary tract infection and just finished up her Bactrim prescription and a urinary infection is improved. She has had a previous abdominal surgery but it was 19 years ago. Allergies and Home Medications Allergies Coded Allergies: No Known Drug Allergies (Unverified , 01/02/22) Patient Home Medication List Home Medication List Reviewed: Yes Bupropion HCl (Wellbutrin Sr) Unknown Strength Tablet.er, Unknown Dose PO, (Reported) Entered as Reported by: RAVINDRA CHILDERS on 01/02/22 1034 Hydrocodone Bit/Acetaminophen (HYDROcodone/APAP 5 MG/325 MG TAB) 1 Tab Tab, 1 TAB PO Q6H PRN for PAIN-SEVERE (8-10) Prescribed by: TASHA PEREZ on 01/01/22 0038 Propranolol HCl (Propranolol HCl ER) Unknown Strength Cap.sa.24h, Unknown Dose PO DAILY, (Reported) Entered as Reported by: RAVINDRA CHILDERS on 01/02/22 1034 Discontinued Medications Albuterol Sulfate (Ventolin Hfa) 90 Mcg Hfa.aer.ad, 18 GM INH Q6H PRN for SHORTNESS OF BREATH Prescribed by: KALYANI LOCK on 12/02/22 1128 Prednisone (Prednisone) 20 Mg Tab, 40 MG PO DAILY Prescribed by: KALYANI LOCK on 12/02/22 1128 Review of Systems Review of Systems Constitutional: No chills, No fever Gastrointestinal: Abdominal Pain, Constipated, Nausea; Denies Vomiting Genitourinary: No Symptoms Reported Musculoskeletal: no symptoms reported Skin: no symptoms reported Psychiatric/Neurological: No Symptoms Reported Endocrine: No Symptoms Reported Past Lidpqoi-Ocvumu-Nhvupi Hx Immunizations Up To Date Tetanus Booster (TDap): Less than 5yrs Seasonal Allergies Seasonal Allergies: No Past Medical History Surgery/Hospitalization HX: gastric sleeve, hysterectomy PMH: MIGRAINES, CLUSTER HEADACHES, TRIGEMINAL NEUROLGIA Surgeries: Yes Abdominal, Hysterectomy Respiratory: No Currently Using CPAP: No Currently Using BIPAP: No Cardiac: Yes Hypertension Neurological: Yes Headaches /Migraines Genitourinary: No Gastrointestinal: Yes Irritable Bowel Musculoskeletal: Yes Arthritis Endocrine: No HEENT: No Cancer: No Psychosocial: Yes Depression Integumentary: No Blood Disorders: No Family Medical History Heart Disease, Cancer, Diabetes, Other Conditions/Hx Physical Exam Vital Signs Vital Signs - First Documented 12/02/22 10:45 Temp 36.6 Pulse 88 Resp 14 B/P (MAP) 151/96 (114) O2 Delivery Room Air Capillary Refill : Height/Weight/BMI Height: '" Weight: lbs. oz. kg; 29.67 BMI Method: General Appearance: WD/WN, no apparent distress Respiratory: chest non-tender, lungs clear Cardiovascular: normal peripheral pulses, regular rate, rhythm Gastrointestinal: soft, tenderness (mild tenderness llq ) Extremities: normal range of motion, non-tender Neurologic/Psychiatric: alert, normal mood/affect, oriented x 3 Skin: normal color, warm/dry Procedures/Interventions Suture Size: 4-0 Progress/Results/Core Measures Results/Orders Lab Results Laboratory Tests Test 12/02/22 11:00 Range/Units White Blood Count 7.0 4.3-11.0 10^3/uL Red Blood Count 4.62 3.80-5.11 10^6/uL Hemoglobin 14.6 11.5-16.0 g/dL Hematocrit 46 35-52 % Mean Corpuscular Volume 99 80-99 fL Mean Corpuscular Hemoglobin 32 25-34 pg Mean Corpuscular Hemoglobin Concent 32 32-36 g/dL Red Cell Distribution Width 12.3 10.0-14.5 % Platelet Count 252 130-400 10^3/uL Mean Platelet Volume 11.0 9.0-12.2 fL Immature Granulocyte % (Auto) 0 % Neutrophils (%) (Auto) 68 42-75 % Lymphocytes (%) (Auto) 25 12-44 % Monocytes (%) (Auto) 6 0-12 % Eosinophils (%) (Auto) 0 0-10 % Basophils (%) (Auto) 1 0-10 % Neutrophils # (Auto) 4.7 1.8-7.8 X 10^3 Lymphocytes # (Auto) 1.8 1.0-4.0 X 10^3 Monocytes # (Auto) 0.4 0.0-1.0 X 10^3 Eosinophils # (Auto) 0.0 0.0-0.3 10^3/uL Basophils # (Auto) 0.1 0.0-0.1 10^3/uL Immature Granulocyte # (Auto) 0.0 0.0-0.1 10^3/uL Sodium Level 140 135-145 MMOL/L Potassium Level 4.3 3.6-5.0 MMOL/L Chloride Level 107 98-107 MMOL/L Carbon Dioxide Level 23 21-32 MMOL/L Anion Gap 10 5-14 MMOL/L Blood Urea Nitrogen 15 7-18 MG/DL Creatinine 0.91 0.60-1.30 MG/DL Estimat Glomerular Filtration Rate 77 BUN/Creatinine Ratio 16 Glucose Level 106 H 70-105 MG/DL Calcium Level 10.1 8.5-10.1 MG/DL Corrected Calcium 8.5-10.1 MG/DL Total Bilirubin 0.3 0.1-1.0 MG/DL Aspartate Amino Transf (AST/SGOT) 17 5-34 U/L Alanine Aminotransferase (ALT/SGPT) 16 0-55 U/L Alkaline Phosphatase 104 40-136 U/L C-Reactive Protein < 0.30 <0.50 MG/DL Total Protein 7.3 6.4-8.2 GM/DL Albumin 4.7 H 3.2-4.5 GM/DL My Orders Orders - KALYANI LOCK DO Cbc With Automated Diff (12/02/22 10:54) Comprehensive Metabolic Panel (12/02/22 10:54) Crp Fs (12/02/22 10:54) Abdomen Flat & Upright/Decub (12/02/22 10:54) Ondansetron Injection (Ondansetron Inj (12/02/22 11:00) Ns Iv 1000 Ml (Ns Iv 1000 Ml) (12/02/22 10:54) Medications Given in ED Vital Signs/I&O 12/02/22 10:45 Temp 36.6 Pulse 88 Resp 14 B/P (MAP) 151/96 (114) O2 Delivery Room Air Progress Progress Note : Progress Note Patient's diagnostic studies were ordered reviewed and interpreted by me. Patient's labs show no acute findings. Patient's x-ray is consistent with constipation with no signs of obstruction. I did discuss with her supportive care for constipation. We discussed CT abdomen and pelvis and felt at this time with joint decision-making it was not be beneficial. She will start outpatient regiment for her constipation will follow-up with her primary care provider as needed. Departure Impression Primary Impression: Constipation Qualified Codes: K59.00 - Constipation, unspecified Disposition: HOME, SELF-CARE Condition: Stable Departure-Patient Inst. Referrals: [facility] (PCP/Family) Primary Care Physician Patient Instructions: Constipation, Adult (DC) Add. Discharge Instructions: MiraLAX every 4-6 hours until soft daily bowel movement then as needed. Please increase the fiber in your diet. Drink plenty of fluids. Follow-up with your primary care provider in 2 to 3 days if symptoms or not improving or return to the ER with significant worsening of symptoms KALYANI LOCK DO Dec 02, 2022 10:53
[2022-12-02] MEDS ORDERED: NS IV 1000 ML 1,000 ML IV STA (10:54)
[2022-12-02] MEDS ORDERED: ONDANSETRON INJECTION 4 MG/2 ML (SDV) IVP ONE (11:00)
[2022-12-02 11:15] LABS: HEMATOCRIT 46 % (35-52); HEMOGLOBIN 14.6 g/dL (11.5-16.0); LYMPHOCYTES % (AUTO) 25 % (12-44); MEAN CORPUSCULAR HEMOGLOBIN 32 pg (25-34); MEAN CORPUSCULAR HGB CONC 32 g/dL (32-36); MEAN CORPUSCULAR VOLUME 99 fL (80-99); MONOCYTES % (AUTO) 6 % (0-12); NEUTROPHILS % (AUTO) 68 % (42-75); PLATELET COUNT 252 10^3/uL (130-400)
[2022-12-02 11:16] LABS: BASOPHILS # (AUTO) 0.1 10^3/uL (0.0-0.1); BASOPHILS % (AUTO) 1 % (0-10); EOSINOPHILS % (AUTO) 0 % (0-10); LYMPHOCYTES # (AUTO) 1.8 X 10^3 (1.0-4.0); MONOCYTES # (AUTO) 0.4 X 10^3 (0.0-1.0); NEUTROPHILS # (AUTO) 4.7 X 10^3 (1.8-7.8)
[2022-12-02] MEDS ORDERED: ALBU18HF2 INH (11:28)
[2022-12-02] MEDS ORDERED: PRD20T PO (11:28)
[2022-12-02 11:29] LABS: ALKALINE PHOSPHATASE 104 U/L (40-136); BILIRUBIN,TOTAL 0.3 MG/DL (0.1-1.0); BUN/CREATININE RATIO 16; CALCIUM 10.1 MG/DL (8.5-10.1); CARBON DIOXIDE 23 MMOL/L (21-32); CHLORIDE 107 MMOL/L (98-107); CREATININE SERUM 0.91 MG/DL (0.60-1.30); GFR ESTIMATED 77; GLUCOSE 106 MG/DL (70-105); POTASSIUM 4.3 MMOL/L (3.6-5.0); SODIUM 140 MMOL/L (135-145)
[2022-12-02 11:30] LABS: ALANINE AMINOTRANSFERASE 16 U/L (0-55); ALBUMIN 4.7 GM/DL (3.2-4.5); TOTAL PROTEIN 7.3 GM/DL (6.4-8.2)
--- NOTE | 2022-12-02 12:17 | Diagnostic Imaging Report ---
CLINICAL INDICATION: Patient with constipation. EXAM: X-ray of the abdomen with multiple supine and upright views. COMPARISON: None. FINDINGS: There is a nonobstructed bowel gas pattern. There is no evidence of abdominal free air. There is a small to moderate amount of stool throughout the colon. Surgical clips are seen overlying the right upper quadrant which could be related to cholecystectomy changes. There are no focal calcifications overlying the expected regions/ pathways of both kidneys, ureters, and bladder regions. Likely phleboliths are seen in the pelvis. The visualized bones and extra abdominal soft tissues are unremarkable. IMPRESSION: 1: There is no radiographic evidence for acute abdominal/ pelvic process or urinary tract stones. 2: There is a small to moderate amount of stool throughout the colon. Dictated by: Dictated on workstation # [id number]
== END 2022-12-02 11:54 | disposition home or self-care (01) ==
LOC: EDUNIT# 10:40 → ER FS 10:42
DX: K59.00 Constipation, unspecified (principal); Z98.84 Bariatric surgery status; Z28.310 Unvaccinated for COVID-19
CPT/HCPCS: 36415; 74019; 80053; 85025; 86141